=== PATIENT | female | born 1985 | race Caucasian/White ===

== ENCOUNTER 2024-06-13 13:27 | Emergency (ER) | payer OTHER ==
[2024-06-13 13:33] VITALS: TEMP 97.8
--- NOTE | 2024-06-13 14:06 | ED ---
General Adult HPI - General Chief complaint: Vaginal Bleeding Stated complaint: vaginal bleeding, preg (week unknown) Time Seen by Provider: 06/13/24 13:39 Source: patient, RN notes reviewed Mode of arrival: ambulatory Limitations: no limitations - History of Present Illness Initial comments: This is a 39-year-old female with no reported medical conditions, [id number], presenting to emergency room with complaint of vaginal bleeding over the past 5 weeks. Patient states that she experiencing vaginal bleeding on 05/05 and took a positive at home test on 21 May. Patient states that she had ultrasound and blood work completed a week after positive hCG testing where her hCG level decreased (to ~2000) and ultrasound was reported as inconclusive. States that she has been having present vaginal bleeding over the past 5 months. Patient would make department with [facility] however the insertion reports Emergency Department initially for further evaluation. She denies abdominal pain or cramping, dizziness, lightheadedness. - Related Data Allergies Allergy/AdvReac Type Severity Reaction Status Date / Time No Known Allergies Allergy Verified 06/13/24 13:34 Review of Systems ROS Statement: Those systems with pertinent positive or pertinent negative responses have been documented in the HPI. ROS Other: All systems not noted in ROS Statement are negative. Past Medical History Past Medical History: No Reported History History of Any Multi-Drug Resistant Organisms: None Reported Past Surgical History: No Surgical Hx Reported Past Psychological History: No Psychological Hx Reported Smoking Status: Never smoker Past Alcohol Use History: Rare Past Drug Use History: None Reported General Exam - General Exam Comments Initial Comments: Visual Physical Exam Vital signs reviewed General: Well-appearing, nontoxic, no acute distress. Head: Normocephalic, atraumatic Eyes: PERRLA, EOMI ENT: Airway patent Chest: Nonlabored breathing Skin: No visual rash, normal skin tone Neuro: Alert and oriented 3 Musculoskeletal: No gross abnormalities Limitations: no limitations General appearance: alert, in no apparent distress ENT exam: Present: normal exam, mucous membranes moist Neck exam: Present: normal inspection. Absent: tenderness, meningismus, lympha denopathy Respiratory exam: Present: normal lung sounds bilaterally. Absent: respiratory distress, wheezes, rales, rhonchi, stridor Cardiovascular Exam: Present: regular rate, normal rhythm, normal heart sounds. Absent: systolic murmur, diastolic murmur, rubs, gallop, clicks GI/Abdominal exam: Present: soft, normal bowel sounds. Absent: distended, tenderness, guarding, rebound, rigid External exam: Present: normal external exam. Absent: erythema, swelling Speculum exam: Present: vaginal bleeding. Absent: vaginal discharge, cervical discharge By manual exam: Present: normal by manual exam. Absent: cervical motion tenderness, adnexal tenderness, adnexal mass Extremities exam: Present: normal inspection, full ROM, normal capillary refill. Absent: tenderness, pedal edema, joint swelling, calf tenderness Back exam: Present: normal inspection. Absent: CVA tenderness (R), CVA tenderness (L) Course Vital Signs 06/13/24 06/13/24 13:29 16:26 Temperature 97.8 F Pulse Rate 97 92 Respiratory 18 20 Rate Blood Pressure 151/92 147/85 O2 Sat by Pulse 98 97 Oximetry Medical Decision Making - Medical Decision Making Was pt. sent in by a medical professional or institution (, PA, TRUST OPERATIONS ASSISTANT, urgent care, hospital, or skilled nursing...) When possible be specific @ -No Did you speak to anyone other than the patient for history (EMS, parent, family, police, friend...)? What history was obtained from this source @ -No Did you review nursing and triage notes (agree or disagree)? Why? @ -I reviewed and agree with nursing and triage notes Were old charts reviewed (outside hosp., previous admission, EMS record, old EKG, old radiological studies, urgent care reports/EKG's, skilled nursing records)? Report findings @ -No old charts were reviewed Differential Diagnosis (chest pain, altered mental status, abdominal pain women, abdominal pain men, vaginal bleeding, weakness, fever, dyspnea, syncope, headache, dizziness, GI bleed, back pain, seizure, CVA, palpatations, mental health, musculoskeletal)? @ -Differential Vaginal Bleeding: Spontaneous , threatened , molar , ectopic , bloody show, incompetent cervix, abruptioplacenta, placenta previa, uterine rupture, dysfunctional uterine bleeding, hemorrhage, uterine fibroids, this is not meant to be an all-inclusive list. EKG interpreted by me (3pts min.). @ -None X-rays interpreted by me (1pt min.). @ -None done CT interpreted by me (1pt min.). @ -None done U/S interpreted by me (1pt. min.). @ -Transvaginal ultrasound completed revealing a heterogeneous thickened endometrial stripe with an anechoic area seen of the left ovary measuring 2.9 x 2.6 x 2.8 cm in addition to shadowing calcification of the cervix is of uncertain etiology. What testing was considered but not performed or refused? (CT, X-rays, U/S, labs)? Why? @ -None What meds were considered but not given or refused? Why? @ -None Did you discuss the management of the patient with other professionals (professionals i.e. , PA, TRUST OPERATIONS ASSISTANT, lab, RT, psych nurse, social human services assistants, catalyst manufacturing operator, teacher, food safety officer, behavioral health case manager)? Give summary @ -No Was smoking cessation discussed for >3mins.? @ -No Was critical care preformed (if so, how long)? @ -No Were there social determinants of health that impacted care today? How? (Homelessness, low income, unemployed, alcoholism, drug addiction, t ransportation, low edu. Level, literacy, decrease access to med. care, residential, rehab)? @ -No Was there de-escalation of care discussed even if they declined (Discuss DNR or withdrawal of care, Hospice)? DNR status @ -No What co-morbidities impacted this encounter? (DM, HTN, Smoking, COPD, CAD, Cancer, CVA, ARF, Chemo, Hep., AIDS, mental health diagnosis, sleep apnea, morbid obesity)? @ -None Was patient admitted / discharged? Hospital course, mention meds given and route, prescriptions, significant lab abnormalities, going to OR and other pertinent info. @ -Discharge. 39-year-old female send the emergency room with persistent vaginal bleeding. Overall patient is well-appearing initial vitals are stable. Pelvic examination completed with clinical nursing professor at bedside reveals direct visualization of the cervix with no foreign body. There is vaginal bleeding, no cervical motion tenderness. Laboratory testing is unremarkable with a stable hemoglobin of 14.0. hCG level of 214. Urinalysis no signs of infection, blood. Ultrasound reveals thickening of the endometrium. Patient stable for discharge with close follow-up with OB. Symptoms may be secondary to abnormal uterine bleeding and/or miscarriage. Return parameters discussed. Case discussed with Dr. Mario herrera. Undiagnosed new problem with uncertain prognosis? @ -No Drug Therapy requiring intensive monitoring for toxicity (Heparin, Nitro, Insulin, Cardizem)? @ -No Were any procedures done? @ -No Diagnosis/symptom? @ -Dysfunctional uterine bleeding, miscarriage Acute, or Chronic, or Acute on Chronic? @ -Acute Uncomplicated (without systemic symptoms) or Complicated (systemic symptoms)? @ -Uncomplicated Side effects of treatment? @ -No Exacerbation, Progression, or Severe Exacerbation? @ -No Poses a threat to life or bodily function? How? (Chest pain, [place], [place], pneumonia, PE, COPD, DKA, ARF, appy, cholecystitis, CVA, Diverticulitis, Homicidal, Suicidal, threat to staff... and all critical care pts) @ -No - Lab Data Result diagrams: 06/13/24 14:24 06/13/24 14:24 Lab Results 06/13/24 06/13/24 06/13/24 Range/Units 14:24 14:24 14:24 WBC 7.70 (4.50-10.00) 10*3/uL RBC 4.91 (4.10-5.20) 10*6/uL Hgb 14.0 (12.0-15.0) g/dL Hct 41.4 (37.2-46.3) % MCV 84.3 (80.0-97.0) fL MCH 28.5 (27.0-32.0) pg MCHC 33.8 (32.0-37.0) g/dL Plt Count 334 (140-440) 10*3/uL MPV 9.7 (9.5-12.2) fL Immature Gran % (Auto) 0.4 % Neutrophils % 52.8 % Lymphocytes % 34.7 % Monocytes % 9.5 % Eosinophils % 2.1 % Basophils % 0.5 % Immature Gran # 0.03 (0.00-0.04) 10*3/uL Neutrophils # 4.07 (1.80-7.70) 10*3/uL Lymphocytes # 2.67 (0.90-5.00) 10*3/uL Monocytes # 0.73 (0.20-1.00) 10*3/uL Eosinophils # 0.16 (0.04-0.35) 10*3/uL Basophils # 0.04 (0.00-0.10) 10*3/uL Sodium 140 (137-145) mmol/L Potassium 3.7 (3.5-5.1) mmol/L Chloride 104 (98-107) mmol/L Carbon Dioxide 27 (22-30) mmol/L Anion Gap 9 mmol/L BUN 14 (7-17) mg/dL Creatinine 0.66 (0.52-1.04) mg/dL Est GFR (CKD-EPI)AfAm >90 (>60 ml/min/1.73 sqM) Est GFR (CKD-EPI)NonAf >90 (>60 ml/min/1.73 sqM) Glucose 93 (74-99) mg/dL Calcium 9.7 (8.4-10.2) mg/dL Total Bilirubin 0.5 (0.2-1.3) mg/dL AST 30 (14-36) U/L ALT 28 (4-34) U/L Alkaline Phosphatase 77 (38-126) U/L Total Protein 8.2 (6.3-8.2) g/dL Albumin 4.7 (3.5-5.0) g/dL HCG, Quant 214.7 mIU/mL Urine Color Light Yellow Urine Appearance Cloudy H (Clear) Urine pH 5.0 (5.0-8.0) Ur Specific [place] 1.025 (1.001-1.035) Urine Protein Negative (Negative) Urine Glucose (UA) Negative (Negative) Urine Ketones Negative (Negative) Urine Blood Large H (Negative) Urine Nitrite Negative (Negative) Urine Bilirubin Negative (Negative) Urine Urobilinogen <2.0 (<2.0) mg/dL Ur Leukocyte Esterase Negative (Negative) Urine RBC 12 H (0-5) /hpf Urine WBC 3 (0-5) /hpf Ur Squamous Epith Cells 7 H (0-4) /hpf Calcium Oxalate Crystal Few H (None) /hpf Urine Bacteria Rare H (None) /hpf Urine Mucus Rare H (None) /hpf Blood Type Blood Type Confirm Blood Type Recheck Bld Type Recheck Status Antibody Screen Spec Expiration Date 06/13/24 06/13/24 Range/Units 14:37 14:41 WBC (4.50-10.00) 10*3/uL RBC (4.10-5.20) 10*6/uL Hgb (12.0-15.0) g/dL Hct (37.2-46.3) % MCV (80.0-97.0) fL MCH (27.0-32.0) pg MCHC (32.0-37.0) g/dL Plt Count (140-440) 10*3/uL MPV (9.5-12.2) fL Immature Gran % (Auto) % Neutrophils % % Lymphocytes % % Monocytes % % Eosinophils % % Basophils % % Immature Gran # (0.00-0.04) 10*3/uL Neutrophils # (1.80-7.70) 10*3/uL Lymphocytes # (0.90-5.00) 10*3/uL Monocytes # (0.20-1.00) 10*3/uL Eosinophils # (0.04-0.35) 10*3/uL Basophils # (0.00-0.10) 10*3/uL Sodium (137-145) mmol/L Potassium (3.5-5.1) mmol/L Chloride (98-107) mmol/L Carbon Dioxide (22-30) mmol/L Anion Gap mmol/L BUN (7-17) mg/dL Creatinine (0.52-1.04) mg/dL Est GFR (CKD-EPI)AfAm (>60 ml/min/1.73 sqM) Est GFR (CKD-EPI)NonAf (>60 ml/min/1.73 sqM) Glucose (74-99) mg/dL Calcium (8.4-10.2) mg/dL Total Bilirubin (0.2-1.3) mg/dL AST (14-36) U/L ALT (4-34) U/L Alkaline Phosphatase (38-126) U/L Total Protein (6.3-8.2) g/dL Albumin (3.5-5.0) g/dL HCG, Quant mIU/mL Urine Color Urine Appearance (Clear) Urine pH (5.0-8.0) Ur Specific [place] (1.001-1.035) Urine Protein (Negative) Urine Glucose (UA) (Negative) Urine Ketones (Negative) Urine Blood (Negative) Urine Nitrite (Negative) Urine Bilirubin (Negative) Urine Urobilinogen (<2.0) mg/dL Ur Leukocyte Esterase (Negative) Urine RBC (0-5) /hpf Urine WBC (0-5) /hpf Ur Squamous Epith Cells (0-4) /hpf Calcium Oxalate Crystal (None) /hpf Urine Bacteria (None) /hpf Urine Mucus (None) /hpf Blood Type A Positive Blood Type Confirm A Positive Blood Type Recheck No Previous Record Bld Type Recheck Status CABO Indicated Antibody Screen NEGATIVE Spec Expiration Date 06/16/20242336 Disposition Clinical Impression: Vaginal bleeding, Thickened endometrium Disposition: HOME SELF-CARE Condition: Stable Instructions (If sedation given, give patient instructions): Abnormal (Dy sfunctional) Uterine Bleeding (ED) Additional Instructions: Please return to the Emergency Department if symptoms worsen or any other concerns. Follow-up with provided ground host/hostess for further evaluation. Is patient prescribed a controlled substance at d/c from ED?: No Referrals: Pedro Damon MD [Primary Care Provider] - 1-2 days Kirstin Flood DO [Doctor of Osteopathic Medicine] - 1-2 days Time of Disposition: 16:13
[2024-06-13 14:51] LABS: Basophils # (A) 0.04 10*3/uL (0.00-0.10); Basophils % (A) 0.5 %; Eosinophils # (A) 0.16 10*3/uL (0.04-0.35); Eosinophils % (A) 2.1 %; HCT 41.4 % (37.2-46.3); Lymphocytes # (A) 2.67 10*3/uL (0.90-5.00); Lymphocytes % (A) 34.7 %; MCH 28.5 pg (27.0-32.0); MCHC 33.8 g/dL (32.0-37.0); MCV 84.3 fL (80.0-97.0); Mean Platelet Volume 9.7 fL (9.5-12.2); Monocytes # (A) 0.73 10*3/uL (0.20-1.00); Monocytes % (A) 9.5 %; Neutrophils # (A) 4.07 10*3/uL (1.80-7.70); Neutrophils % (A) 52.8 %; Platelet Count 334 10*3/uL (140-440); RBC 4.91 10*6/uL (4.10-5.20); RDW 12.6 % (11.5-14.5)
[2024-06-13 15:06] LABS: Albumin 4.7 g/dL (3.5-5.0); Chloride 104 mmol/L (98-107); Glucose 93 mg/dL (74-99); Total Protein 8.2 g/dL (6.3-8.2)
[2024-06-13 15:07] LABS: ALT 28 U/L (4-34); AST 30 U/L (14-36); African American GFR (CKD) >90 (>60 ml/min/1.73 sqM); Alkaline Phosphatase 77 U/L (38-126); Anion Gap 9 mmol/L; Blood Urea Nitrogen 14 mg/dL (7-17); Calcium 9.7 mg/dL (8.4-10.2); Carbon Dioxide 27 mmol/L (22-30); Non-African American GFR(CKD) >90 (>60 ml/min/1.73 sqM); Potassium 3.7 mmol/L (3.5-5.1); Sodium 140 mmol/L (137-145); Total Bilirubin 0.5 mg/dL (0.2-1.3)
[2024-06-13 15:21] LABS: HCG,Quantitative Serum 214.7 mIU/mL
[2024-06-13 15:23] LABS: Appearance,Urine Cloudy (Clear); Bacteria,Urine Rare /hpf; Bilirubin,Urine Negative (Negative); Blood,Urine Large (Negative); Calcium Oxalate Crystals,Urine Few /hpf; Color,Urine Light Yellow; Glucose,Urine (UA) Negative (Negative); Ketones,Urine Negative (Negative); Leukocyte Esterase,Urine Negative (Negative); Mucus,Urine Rare /hpf; Nitrite,Urine Negative (Negative); Protein,Urine Negative (Negative); RBC,Urine 12 /hpf (0-5); Specific Gravity,Urine 1.025 (1.001-1.035); Squamous Epithelial Cell,Urine 7 /hpf (0-4); Urobilinogen,Urine <2.0 mg/dL (<2.0); WBC,Urine 3 /hpf (0-5)
--- NOTE | 2024-06-13 15:31 | US ---
EXAMINATION TYPE: US transvaginal DATE OF EXAM: 06/13/2024 COMPARISON: NONE CLINICAL INDICATION: Female, 39 years old with history of persistent bleeding X5 weeks; Bleeding x 5 weeks. TECHNIQUE: Transvaginal (TV). Doppler imaging: Not performed. FINDINGS: EXAM MEASUREMENTS: Uterus: 8.3 x 4.0 x 4.8 cm Endometrial Stripe: 1.5 cm Right Ovary: 2.5 x 1.3 x 2.1 cm Left Ovary: 3.5 x 3.3 x 3.5 cm 1. Uterus: Anteverted Calcification in cervex UZMA complex area seen measuring 4.7 x 1.6 x 2.3 cm. 2. Endometrium: appears thickened and complex 3. Right Ovary: wnl 4. Left Ovary: Anechoic area seen 2.9 x 2.6 x 2.8 cm Spectral, color and waveform doppler imaging shows good arterial and venous flow within the ovaries ; 5. Bilateral Adnexa: wnl 6. Posterior cul-de-sac: wnl Simple 2.9 cm thin-walled cyst in the left ovary. Shadowing calcification in the cervix should be cor related with direct visualization as is of uncertain etiology. Consider foreign body. IMPRESSION: Heterogeneous thickened endometrial stripe. Consider dilatation and curettage to further evaluate. Other findings as noted above. O-RADS 2021 [email or web address] [facility], , 06/13/2024 3:29 PM
[2024-06-13 16:27] VITALS: BP 147/85; PULSE 92; RESP 20
== END 2024-06-13 16:35 | disposition home or self-care (01) ==
LOC: EC 13:27
DX: O46.90 Antepartum hemorrhage, unspecified, unspecified trimester (principal); R93.89 Abnormal findings on diagnostic imaging of other specified body structures; Z3A.00 Weeks of gestation of pregnancy not specified
CPT/HCPCS: 36415; 76830; 80053; 81001; 84702; 85025; 86850; 86900; 86901; 93975; 99284